=== PATIENT | female | born 1980 | race Caucasian/White ===

== ENCOUNTER 2017-03-05 18:53 | Emergency (ER) | payer OTHER ==
--- NOTE | 2017-03-05 20:15 | UC ---
Jennifer Castro Emily, scribed for Vilma Alba MD on 03/05/17 at 2013 . Respiratory Complaint HPI - HPI Summary HPI Summary: This patient is a 36 year old F presenting to urgent care with a chief complaint of sore throat that began 3 days ago. Pt reports having a waxing and waning cough, sinus congestion, ear pain, pnd for the last month as well. The patient rates the pain 7/10 in severity. Symptoms aggravated by nothing. Symptoms alleviated by nothing. Pt is breast feeding 15month old. Patient reports sinus pain and post nasal drip. Patient denies ear pain. 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 Patients medications reviewed this visit. - History of Current Complaint Chief Complaint: UCRespiratory Stated Complaint: SORE THROAT Time Seen by Provider: 03/05/17 20:04 Hx Obtained From: Patient Hx Last Menstrual Period: breast feeding ?: No - IUD, breast feeding Onset/Duration: Sudden Onset, Lasting Days, Still Present Severity Initially: Moderate Severity Currently: Moderate Pain Intensity: 7 Pain Scale Used: 0-10 Numeric Aggravating Factors: Nothing Alleviating Factors: Nothing Associated Signs And Symptoms: Positive: Sinus Discomfort - Allergies/Home Medications Allergies/Adverse Reactions: Allergies Allergy/AdvReac Type Severity Reaction Status Date / Time Codeine Allergy GI Upset Verified 03/05/17 19:58 PMH/Surg Hx/FS Hx/Imm Hx Previously Healthy: Yes Endocrine History: Other Other Endocrine History: Negative diabetes Cardiovascular History: Other Other Cardiovascular History: Negative hypertension - Surgical History Surgical History: Yes Surgery Procedure, Year, and Place: Knee surgeries x2 - Family History Known Family History: Positive: Cardiac Disease, Hypertension, Diabetes - Social History Occupation: Employed Full-time Lives: With Family Alcohol Use: None Substance Use Type: None Smoking Status (MU): Never Smoked Tobacco - Immunization History Most Recent Influenza Vaccination: unknown Most Recent Tetanus Shot: " in " Most Recent Pneumonia Vaccination: never Review of Systems Constitutional: Negative ENT: Sore Throat, Ear Ache, Sinus Congestion, Other - Positive post nasal drip and sinus pain. Negative ear pain Respiratory: Cough All Other Systems Reviewed And Are Negative: Yes Physical Exam Triage Information Reviewed: Yes Appearance: Well-Appearing, No Pain Distress, Well-Nourished Vital Signs: Initial Vital Signs Temp 97.7 F 03/05/17 19:59 Pulse 58 03/05/17 19:59 Resp 15 03/05/17 19:59 Pulse Ox 100 03/05/17 19:59 Vital Signs Reviewed: Yes Eye Exam: Normal Eyes: Positive: Conjunctiva Clear ENT: Positive: Hearing grossly normal, Nasal congestion, TM bulging, TM red, Uvula midline, Other - right TM + fluid, retraction, erythema left scant fluid turbinates boggy + PND + erythema, no exudate uvula midline. Negative: Sinus tenderness Dental Exam: Normal Neck exam: Normal Neck: Positive: Supple Respiratory Exam: Normal Respiratory: Positive: Chest non-tender, Lungs clear, Normal breath sounds, No respiratory distress, No accessory muscle use Cardiovascular Exam: Normal Cardiovascular: Positive: RRR, No Murmur Abdominal Exam: Normal Abdomen Description: Positive: Nontender, No Organomegaly, Soft Bowel Sounds: Positive: Present Musculoskeletal Exam: Normal Neurological Exam: Normal Psychological Exam: Normal Skin Exam: Normal UC Diagnostic Evaluation - Laboratory O2 Sat by Pulse Oximetry: 100 Respiratory Course/Dx - Course Course Of Treatment: PT with congestion, PND, sore throat x 3 days pt has had intermittent cough, ear pain. no OTC meds. will check rapid strp. Pt with + right OM. will give abx. recommend nasal spray, congestion. secretion precautions. pt comfortable and in agreement with plan - Differential Dx/Diagnosis Provider Diagnoses: right OM. pharyngitis Discharge - Discharge Plan Condition: Stable Disposition: HOME Prescriptions: Amoxicillin PO (*) [Amoxicillin 875 MG (*)] 875 mg PO BID #14 tab Patient Education Materials: Pharyngitis (ED), Otitis Media (ED) Forms: *Work Release Referrals: Lois Agudelo MD [Primary Care Provider] - Additional Instructions: - Stay well hydrated. Drink plenty of non-alcholic, non-caffinated beverages - After you have been on antibiotics for 2 days - change your toothbrush and your pillowcase. These infections are spread by secretions - do NOT share eating or drinking utensils - clean items you share with other people such as cell phones, computer mouse, TV remote, computer tablets, etc - Okay to take Tylenol every 6 hours for pain or fever - - Gargle with warm, salt water 2-3 times a day - Cold beverages may be soothing to your throat - popsicles, apple sauce, jello - Contact your doctor to schedule a follow-up appointment. Contact your doctor or return with questions or concerns The documentation as recorded by the Jennifer babcock Emily accurately reflects the service I personally performed and the decisions made by me, Vilma Alba MD.
[2017-03-05] MEDS ORDERED: Amoxicillin PO (*) 500 MG CAP PO ONE (20:52)
== END 2017-03-05 21:12 | disposition home or self-care (01) ==
LOC: UCEAST 18:53
DX: J02.9 Acute pharyngitis, unspecified (principal); H66.91 Otitis media, unspecified, right ear; Z88.5 Allergy status to narcotic agent
CPT/HCPCS: 87651; 99212; A9270-GY; G0463

== ENCOUNTER 2017-03-25 19:08 | Emergency (ER) | payer OTHER ==
[2017-03-25 19:37] VITALS: BP 116/62
--- NOTE | 2017-03-25 19:46 | UC ---
Throat Pain/Nasal [place] HPI - HPI Summary HPI Summary: Pt presents with sinus congestion and left ear pain. She tells me that about 3 weeks ago she had sinus congestion/pain/pressure accompanied by right ear pain and she was rx'd amoxicillin for 7 days. After finishing the antibiotic, she felt relief of all her symptoms for about 3 days - but her symptoms returned. Currently she is complaining of LEFT ear pain and sinus congestion/pain/ pressure. Denies fever, chills, cough, SOB, chest pain, abdominal pain, N/V/d/ C. She states that she does have a significant history of chronic sinusitis, especially when she was younger. - History of Current Complaint Chief Complaint: UCEar Stated Complaint: CONGESTION/EAR PAIN Time Seen by Provider: 03/25/17 19:23 Hx Obtained From: Patient Hx Last Menstrual Period: has IUD Onset/Duration: Gradual Onset Severity: Moderate - Allergies/Home Medications Allergies/Adverse Reactions: Allergies Allergy/AdvReac Type Severity Reaction Status Date / Time Codeine Allergy GI Upset Verified 03/05/17 19:58 PMH/Surg Hx/FS Hx/Imm Hx Previously Healthy: Yes - Surgical History Surgical History: Yes Surgery Procedure, Year, and Place: Knee surgeries x2 - Family History Known Family History: Positive: None, Cardiac Disease, Hypertension, Diabetes - Social History Occupation: Employed Full-time Lives: With Family Alcohol Use: Weekly Substance Use Type: None Smoking Status (MU): Never Smoked Tobacco - Immunization History Most Recent Influenza Vaccination: unknown Most Recent Tetanus Shot: " in " Most Recent Pneumonia Vaccination: never Review of Systems Constitutional: Negative Skin: Negative Eyes: Negative ENT: Ear Ache, Nasal Discharge, Sinus Congestion, Sinus Pain/Tenderness Respiratory: Negative Cardiovascular: Negative Gastrointestinal: Negative All Other Systems Reviewed And Are Negative: Yes Physical Exam Triage Information Reviewed: Yes Appearance: Well-Appearing, Well-Nourished Vital Signs: Initial Vital Signs Temp 98.4 F 03/25/17 19:30 Pulse 63 03/25/17 19:30 Resp 16 03/25/17 19:30 BP 116/62 03/25/17 19:30 Pulse Ox 100 03/25/17 19:30 Vital Signs Reviewed: Yes Eyes: Positive: Conjunctiva Clear. Negative: Conjunctiva Inflamed, Discharge ENT: Positive: Hearing grossly normal, Pharynx normal, Nasal congestion, Nasal drainage, TMs normal, Sinus tenderness, Uvula midline. Negative: Pharyngeal erythema, TM bulging, TM dull, TM red, Tonsillar swelling, Tonsillar exudate, Muffled voice Neck: Positive: Supple, Nontender, No Lymphadenopathy Respiratory: Positive: Chest non-tender, Lungs clear, Normal breath sounds, No respiratory distress, No accessory muscle use Cardiovascular: Positive: RRR, No Murmur, Pulses Normal Neurological: Positive: Alert Psychological: Positive: Age Appropriate Behavior Skin: Negative: rashes Throat Pain/Nasal Course/Dx - Course Course Of Treatment: Sinusitis - Augmentin for 10 days - Differential Dx/Diagnosis Differential Diagnosis/HQI/PQRI: Otitis Media, Sinusitis, Tonsillitis, URI Provider Diagnoses: Sinusitis. Earache Discharge - Discharge Plan Condition: Stable Disposition: HOME Prescriptions: Amoxicillin/Clavulanate TAB* [Augmentin TAB 875*] 875 mg PO BID #20 tab Patient Education Materials: Sinusitis (ED) Referrals: Lois Agudelo MD [Primary Care Provider] - Additional Instructions: If you develop a fever, SOB, chest pain, new or worsening symptoms - please call your PCP or go to the ED.
== END 2017-03-25 19:59 | disposition home or self-care (01) ==
LOC: UCEAST 19:08
DX: J32.9 Chronic sinusitis, unspecified (principal); H92.02 Otalgia, left ear; Z88.5 Allergy status to narcotic agent
CPT/HCPCS: 99212; G0463

== ENCOUNTER 2017-03-28 20:10 | Emergency (ER) | payer OTHER ==
[2017-03-28 20:41] VITALS: BP 118/76
[2017-03-28] MEDS ORDERED: DOXYcycline CAP(*) 100 MG PO ONE (22:25)
--- NOTE | 2017-03-28 22:34 | UC ---
Skin Complaint HPI - HPI Summary HPI Summary: PT STARTED ON AUGMENTIN FOR SINUSITIS 3 DAYS AGO. YESTERDAY DEVELOPED MILD RASH ON LOWER ABDOMEN WHICH HAS NOW RESOLVED. ALSO DEVELOPED SCRATCHY THROAT AND ITCHY MOUTH. TOOK SOME BENADRYL WHICH HAS HELPED. ALSO HAD SOME JOINT PAIN IN THE MIDDLE OF THE NIGHT WHICH IS ALSO RESOLVED. - History of Current Complaint Chief Complaint: UCGeneralIllness Time Seen by Provider: 03/28/17 22:12 Stated Complaint: JOINT PAIN,ITCHINESS THROAT & MOUTH Hx Obtained From: Patient Hx Last Menstrual Period: has IUD Onset/Duration: Gradual Onset, Lasting Days - 1 DAY, Resolved Onset Severity: Moderate Current Severity: Mild Pain Intensity: 0 Pain Scale Used: 0-10 Numeric Character: Pruritus Aggravating Factor(s): Nothing Alleviating Factor(s): Antihistamines Associated Signs & Symptoms: Positive: Rash. Negative: Nausea, Fever, Cough, Wheezing, Chest Pain, Throat Tightening Related History: Recent change in medication - Allergy/Home Medications Allergies/Adverse Reactions: Allergies Allergy/AdvReac Type Severity Reaction Status Date / Time Codeine Allergy GI Upset Verified 03/28/17 20:41 Review of Systems Constitutional: Negative Skin: Rash ENT: Other - SCRATCHY THROAT Respiratory: Negative Cardiovascular: Negative Gastrointestinal: Negative All Other Systems Reviewed And Are Negative: Yes PMH/Surg Hx/FS Hx/Imm Hx Previously Healthy: Yes - Surgical History Surgical History: Yes Surgery Procedure, Year, and Place: Knee surgeries x2 - Family History Known Family History: Positive: Cardiac Disease, Hypertension, Diabetes - Social History Alcohol Use: Rare Substance Use Type: None Smoking Status (MU): Never Smoked Tobacco - Immunization History Most Recent Influenza Vaccination: unknown Most Recent Tetanus Shot: " in " Most Recent Pneumonia Vaccination: never Physical Exam Triage Information Reviewed: Yes Appearance: Well-Appearing, No Pain Distress, Well-Nourished Vital Signs: Initial Vital Signs Temp 98.5 F 03/28/17 20:33 Pulse 67 03/28/17 20:33 Resp 18 03/28/17 20:33 BP 118/76 03/28/17 20:33 Pulse Ox 100 03/28/17 20:33 Vital Signs Reviewed: Yes Eyes: Positive: Conjunctiva Clear ENT: Positive: Hearing grossly normal, Pharynx normal, TMs normal Neck: Positive: Supple, Nontender, No Lymphadenopathy Respiratory Exam: Normal Cardiovascular Exam: Normal Abdomen Description: Positive: Soft Musculoskeletal: Positive: No Edema Neurological: Positive: Alert Psychological: Positive: Age Appropriate Behavior Skin: Negative: rashes Course/Dx - Diagnoses Provider Diagnoses: ADVERSE DRUG REACTION Discharge - Discharge Plan Condition: Stable Disposition: HOME Prescriptions: Doxycycline (Monohydrate) [Doxycycline Monohydrate] 1 cap PO BID #19 cap Patient Education Materials: Sinusitis (ED), Adverse Drug Reaction (ED) Referrals: Lois Agudelo MD [Primary Care Provider] - If Needed Additional Instructions: YOU MAY HAVE HAD AN ADVERSE REACTION TO THE AUGMENTIN. STOP THIS MEDICINE AND START DOXYCYCLINE FOR YOUR SINUSITIS. TAKE OTC ANTIHISTAMINE DAILY (CLARITIN (LORATADINE), ZYRTEC (CETIRIZINE) OR FRANCHESCA (FEXOFENADINE) IN THE MORNING, 25-50MG BENADRYL AT NIGHT) UNTIL YOUR SYMPTOMS ARE COMPLETELY RESOLVED. CONSIDER EVALUATION BY AN INFORMATICS SCIENTIST.
== END 2017-03-28 22:42 | disposition home or self-care (01) ==
LOC: UCEAST 20:10
DX: T50.905A Adverse effect of unspecified drugs, medicaments and biological substances, initial encounter (principal); R21 Rash and other nonspecific skin eruption; Y92.9 Unspecified place or not applicable
CPT/HCPCS: 99212; A9270-GY; G0463